=== PATIENT | female | born 1935 | race Caucasian/White ===

== ENCOUNTER 2016-12-18 22:51 | Emergency (ER) | payer OTHER, BC ==
[~2016-12-18] VITALS: Ht 162.6 cm; Wt 80.2 kg
[~2016-12-18 22:51] MED LIST: ASPIRIN81 M1 PO; COUMADIN4 MG PO; Ecotrin PO; Glucophage PO; Hydrodiuril,Oretic,E PO; INDERAL40 MG PO; INDERIDE 40/1 TABLET PO; K-Dur PO; KLOR-CON M2020 MEQ PO; NOVOLOG PE100 UNITS/ SC; VITAMIN D31000 UNI2 PO; Vicodin,Lortab 5/500 PO
[2016-12-18 23:42] LABS: POINT-OF-CARE METER ID UU13113702
[2016-12-18 23:54] LABS: EOSINOPHIL (%) 2.3 % (0-5); EOSINOPHIL COUNT 0.1 K/uL (0-0.3); HEMATOCRIT 35.2 % (36.0-46.0); IMMATURE GRANULOCYTE (%) 0.2 % (0.0-0.7); INSTRUMENT ABS NEUTROPHIL CT 2.9 K/uL; LYMPHOCYTE COUNT 1.5 K/uL (1.0-2.8); MCHC 33.5 G/DL (30.0-36.0); MCV 95.4 FL (83-99); MEAN PLAT.VOLUME 10.6 uM^3 (9.5-12.4); MONOCYTE (%) 11.2 % (3-12); MONOCYTE COUNT 0.6 K/uL (0-0.8); NEUTROPHIL (%) 56.7 % (45-76); NEUTROPHIL COUNT 2.9 K/uL (1.8-6.4); PLATELET COUNT 224 K/uL (156-360); RBC DIS.WIDTH-CV 13.2 % (11.8-14.6); RBC DIS.WIDTH-SD 46.4 % (39-53); RED BLOOD COUNT 3.69 M/uL (3.80-5.20); WHITE BLOOD COUNT 5.1 K/uL (4.1-10.2)
[2016-12-19 00:02] LABS: CHLORIDE 99 mEq/L (99-109); POTASSIUM 3.4 mEq/L (3.7-5.4); SODIUM 135 mEq/L (136-147)
[2016-12-19 00:04] LABS: GLUCOSE 157 mg/dL (70-99); INTER. NORMALIZED RATIO 1.1; PROTHROMBIN TIME 11.2 (9.2-11.2); PTT 24.8 (25-32)
[2016-12-19 00:05] LABS: ANION GAP 12 MEQ/L (2-14)
[2016-12-19 00:06] LABS: TOTAL BILIRUBIN 0.4 mg/dL (0.0-1.0)
[2016-12-19 00:07] LABS: ALKALINE PHOSPHATASE 58 IU/L (3-129)
[2016-12-19 00:08] LABS: GFR ESTIMATE (CALCULATED) > 59 mL/min/
[2016-12-19 00:09] LABS: UREA NITROGEN (BUN) 20 mg/dL (9-23)
[2016-12-19 00:11] LABS: LIPASE 14 U/L (1.0-51.0)
[2016-12-19 00:14] LABS: TROP-I INTERPRETATION NEGATIVE; TROPONIN-I < 0.01 ng/mL (0.0-0.30)
[2016-12-19 02:09] LABS: ADD MIUA? YES; BILIRUBIN NEGATIVE; BLOOD NEGATIVE; COLOR YELLOW ((YELLOW)); GLUCOSE (STRIP) NEGATIVE; KETONES NEGATIVE; LEUKOCYTES TRACE; NITRITE NEGATIVE; PROTEIN (STRIP) NEGATIVE; UROBILINOGEN 0.2 MG/DL (0.2-1.0)
[2016-12-19 02:22] LABS: BACTERIA RARE /HPF; EPITHELIAL CELLS RARE /HPF; HYALINE CASTS 0-5 /LPF; MUCUS TRACE /LPF; RED BLOOD CELLS 0-5 /HPF (0-5); UCUL ADDED? NO; WHITE BLOOD CELLS 0-5 /HPF (0-5)
[2016-12-19 03:03] VITALS: BP 109/74
== END 2016-12-19 03:04 | disposition home or self-care (01) ==
LOC: EME → EDBD 22:51 → EME 12-19 03:04
PROVIDERS: Emergency Medicine
DX: R55 Syncope and collapse (principal); R19.7 Diarrhea, unspecified; I10 Essential (primary) hypertension; Z86.711 Personal history of pulmonary embolism; Z86.718 Personal history of other venous thrombosis and embolism
CPT/HCPCS: 80053; 81003; 82948; 83690; 84484; 85025; 85610; 85730; 86850; 86900; 86901; 93005; 99281; 99284; J7030